=== PATIENT | male | born 1970 | race Caucasian/White ===

== ENCOUNTER 2016-12-29 13:01 | Emergency (ER) | payer OTHER ==
--- NOTE | 2016-12-29 13:22 | UC ---
Dental HPI - HPI Summary HPI Summary: 46 YEAR OLD PRESENTS WITH COMPLAINS OF DENTAL/ORAL PAIN. PATIENT HAS LEFT FACIAL DROOP, LEFT ARM WEAKNESS AND WOBBLY GATE. I WILL SEND HIM TO THE ER TO RULE OUT STROKE. - History of Current Complaint Stated Complaint: ORAL COMPLAINT Time Seen by Provider: 12/29/16 13:20 - Allergies/Home Medications Allergies/Adverse Reactions: Allergies Allergy/AdvReac Type Severity Reaction Status Date / Time Cephalosporins Allergy Swelling Verified 12/29/16 13:24 Of Face,Lips,& Throat Famotidine Allergy Swelling Verified 12/29/16 13:24 Of Face,Lips,& Throat Penicillins Allergy Vomiting Verified 12/29/16 13:24 Home Medications: Home Medications Ciclopirox Olamine [Ciclodan] 0.77 % EX BID 12/29/16 [History Confirmed 12/29/16 ] Duloxetine HCl 40 mg PO DAILY 12/29/16 [History Confirmed 12/29/16] Insulin Glargine (Nf) [Toujeo Solostar Pen (NF)] 300 unit SC DAILY 12/29/16 [ History Confirmed 12/29/16] PMH/Surg Hx/FS Hx/Imm Hx - Surgical History Surgical History: Yes Surgery Procedure, Year, and Place: 06/2000 cardiac; 06/02 uvpp, tonsils, nasal septum; 01/07 right tibial plateau; ankle. - Family History Known Family History: Positive: Hypertension, Diabetes - Social History Alcohol Use: None Substance Use Type: None Smoking Status (MU): Never Smoked Tobacco Have You Smoked in the Last Year: No Review of Systems Constitutional: Negative, Fatigue Skin: Negative Eyes: Negative ENT: Negative Respiratory: Negative Cardiovascular: Negative Gastrointestinal: Negative Genitourinary: Negative Motor: Weakness Neurovascular: Negative Musculoskeletal: Negative Neurological: Weakness, Paresthesia, Numbness, Other - LEFT SIDED FACIAL DROOP Psychological: Negative All Other Systems Reviewed And Are Negative: Yes Physical Exam Triage Information Reviewed: Yes Eye Exam: Normal ENT Exam: Normal Dental Exam: Normal Neck exam: Normal Neck: Positive: 1 Respiratory Exam: Normal Cardiovascular Exam: Normal Abdominal Exam: Normal Musculoskeletal: Positive: Strength Limited @ Neurological: Positive: Abnormal Muscle Tone Psychological Exam: Normal Skin Exam: Normal Dental Complaint Course/Dx - Differential Dx/Diagnosis Provider Diagnoses: LEFT FACIAL DROOP. LEFT SIDED MUSCLE WEAKNESS. LEFT SIDED NUMBNESS Discharge - Discharge Plan Condition: Guarded Disposition: AGAINST MEDICAL ADVICE Referrals: Claudio Cisneros DO [Primary Care Provider] - Additional Instructions: SPOKE TO DR PERRY . RULE OUT STROKE.
[2016-12-29 13:24] VITALS: BP 157/91
== END 2016-12-29 13:46 | disposition left against medical advice (07) ==
LOC: UCCORT 13:01
DX: R29.810 Facial weakness (principal); M62.81 Muscle weakness (generalized); R20.9 Unspecified disturbances of skin sensation
CPT/HCPCS: 99212; G0463

== ENCOUNTER 2017-10-18 20:37 | Emergency (ER) | payer OTHER ==
[2017-10-18 21:08] VITALS: BP 146/95
[2017-10-18] MEDS ORDERED: Clarithromycin TAB* 500 MG PO ONE (21:39)
--- NOTE | 2017-10-18 21:40 | ED ---
Throat Pain/Nasal Congestion - HPI Summary HPI Summary: 46 yr old with runny nose, post nasal drip, ear pain, and sinus pressure. He has had the symptoms a solid three days with sinus pressure for several days preceeding this. No fever. No other complaint.s - History of Current Complaint Chief Complaint: UCGeneralIllness Time Seen by Provider: 10/18/17 21:16 - Allergies/Home Medications Allergies/Adverse Reactions: Allergies Allergy/AdvReac Type Severity Reaction Status Date / Time Cephalosporins Allergy Swelling Verified 10/18/17 21:13 Of Face,Lips,& Throat famotidine Allergy Swelling Verified 10/18/17 21:13 Of Face,Lips,& Throat Penicillins Allergy Vomiting Verified 10/18/17 21:13 Home Medications: Home Medications Diclofenac Sodium/Misoprostol [Diclofenac-Misoprost 75-200 Tb] DAILY 10/18/17 [ History] PMH/Surg Hx/FS Hx/Imm Hx Endocrine/Hematology History: Reports: Hx Diabetes - type 2 Respiratory History: Denies: Hx Pneumonia Psychiatric History: Denies: Hx Schizophrenia - Surgical History Surgery Procedure, Year, and Place: 06/2000 cardiac; 06/02 uvpp, tonsils, nasal septum; 01/07 right tibial plateau; ankle. Infectious Disease History: No Infectious Disease History: Denies: Traveled Outside the [place] in Last 30 Days - Family History Known Family History: Positive: Hypertension, Diabetes - Social History Alcohol Use: None Substance Use Type: Reports: None Smoking Status (MU): Never Smoked Tobacco Have You Smoked in the Last Year: No Review of Systems Negative: Fever, Chills Positive: Sore Throat, Ear Ache, Nasal Discharge All Other Systems Reviewed And Are Negative: Yes Physical Exam Triage Information Reviewed: Yes Vital Signs On Initial Exam: Initial Vitals Temp Pulse Resp BP Pulse Ox 99.1 F 102 18 146/95 98 10/18/17 21:05 10/18/17 21:05 10/18/17 21:05 10/18/17 21:05 10/18/17 21:05 Vital Signs Reviewed: Yes Appearance: Positive: Well-Appearing, No Pain Distress Skin: Positive: Warm, Skin Color Reflects Adequate Perfusion Head/Face: Positive: Normal Head/Face Inspection Eyes: Positive: EOMI ENT: Positive: Pharyngeal erythema, TM red - left, Sinus tenderness. Negative: Tonsillar swelling, Tonsillar exudate, Hoarse voice Neck: Positive: Supple, Nontender Respiratory/Lung Sounds: Positive: Clear to Auscultation, Breath Sounds Present Cardiovascular: Positive: RRR. Negative: Murmur Abdomen Description: Positive: Nontender Musculoskeletal: Positive: Strength/ROM Intact Neurological: Positive: Sensory/Motor Intact, Alert, Oriented to Person Place, Time, CN Intact II-III Psychiatric: Positive: Normal - Jessica Coma Scale Best Eye Response: 4 - Spontaneous Best Motor Response: 6 - Obeys Commands Best Verbal Response: 5 - Oriented Coma Scale Total: 15 Diagnostics - Vital Signs Vital Signs Temp Pulse Resp BP Pulse Ox 10/18/17 21:05 99.1 F 102 18 146/95 98 - Laboratory Lab Statement: Any lab studies that have been ordered have been reviewed, and results considered in the medical decision making process. EENT Course/Dx - Course Course Of Treatment: 46 yr old with sinusitis. Left OM. - Diagnoses Provider Diagnoses: Sinusitis Discharge - Sign-Out/Discharge Documenting (check all that apply): Discharge/Admit/Transfer - Discharge Plan Condition: Good Disposition: HOME Prescriptions: Clarithromycin TAB* [Biaxin 500 MG TAB*] 500 mg PO BID #20 tab Patient Education Materials: Sinusitis (ED), Ear Infection (ED), Hypertension ( ED) Referrals: Mohit Castaneda DO [Primary Care Provider] - 3 Days - Billing Disposition and Condition Condition: GOOD Disposition: HOME
== END 2017-10-18 21:44 | disposition home or self-care (01) ==
LOC: UCCORT 20:37
DX: J32.9 Chronic sinusitis, unspecified (principal); H66.92 Otitis media, unspecified, left ear; Z88.0 Allergy status to penicillin; Z88.8 Allergy status to other drugs, medicaments and biological substances; Z88.3 Allergy status to other anti-infective agents
CPT/HCPCS: 99212; A9270-GY; G0463